=== PATIENT | male | born 1965 | race African-American/Black ===

== ENCOUNTER 2017-01-25 14:11 | Emergency (ER) | payer MEDICAID ==
[~2017-01-25] VITALS: Ht 188 cm; Wt 126.4 kg
[~2017-01-25 14:11] MED LIST: ABILIFY5 MG PO; AMLODIPINE5 MG PO; BENZTROPINE0.5 MG PO; ESCITALOPRAM OX10 MG PO; HYDROCHLOROT12.5 M1 PO; KEFLEX500 M1 PO; MIRTAZAPINE15 MG PO; PREVACID30 M3 PO; RISPERDAL2 MG PO; TRAZODONE100 MG PO; ULTRAM50 M1 PO; ZOFRAN ODT4 MG PO
[2017-01-25] MEDS ORDERED: RESTORIL15 MG PO (14:20)
[2017-01-25] MEDS ORDERED: ZESTRIL10 M1 PO (14:20)
[2017-01-25] MEDS ORDERED: FUROSEMIDE40 MG PO (14:20)
[2017-01-25] MEDS ORDERED: XARELTO10 MG PO (14:21)
[2017-01-25] MEDS ORDERED: CYCLOBENZAPR10 MG PO (14:22)
[2017-01-25] MEDS ORDERED: ZENPEP PO (14:22)
[2017-01-25] MEDS ORDERED: AMLODIPINE5 MG PO (14:23)
[2017-01-25] MEDS ORDERED: MIRTAZAPINE7.5 MG PO (14:24)
[2017-01-25] MEDS ORDERED: FLEXERIL PO (15:58)
[2017-01-25] MEDS ORDERED: LORTAB 10-325 M1 TAB PO (15:58)
[2017-01-25 16:02] VITALS: BP 128/87
== END 2017-01-25 16:09 | disposition home or self-care (01) | DRG 563 ==
LOC: ED 14:11
DX: S39.012A Strain of muscle, fascia and tendon of lower back, initial encounter (principal); I10 Essential (primary) hypertension; S43.401A Unspecified sprain of right shoulder joint, initial encounter; F32.9 Major depressive disorder, single episode, unspecified; F41.9 Anxiety disorder, unspecified; F17.290 Nicotine dependence, other tobacco product, uncomplicated; G89.29 Other chronic pain; M54.9 Dorsalgia, unspecified; X50.0XXA Overexertion from strenuous movement or load, initial encounter; Y93.89 Activity, other specified; Z86.73 Personal history of transient ischemic attack (TIA), and cerebral infarction without residual deficits

== ENCOUNTER 2017-03-10 06:39 | Day surgery (SDC) | payer MEDICAID ==
[~2017-03-10] VITALS: Ht 188 cm; Wt 128.8 kg
[~2017-03-10 06:39] MED LIST changes: +CYCLOBENZAPR10 MG PO; +FLEXERIL PO; +FUROSEMIDE40 MG PO; +HYDROCODONE/ACE1 TAB PO; +KLOR-CON 1010 MEQ PO; +LORTAB 10-325 M1 TAB PO; +METOPROL TAR25 M1 PO; +MIRTAZAPINE7.5 MG PO; +RESTORIL15 MG PO; +RISPERDAL 4MG TA4 MG PO; +XARELTO10 MG PO; +ZENPEP PO; +ZESTRIL10 M1 PO; +ZOLPIDEM5 MG PO
[2017-03-10] MEDS ORDERED: NORCO1 TA2 PO (08:49)
[2017-03-10 08:50] VITALS: BP 119/83
== END 2017-03-10 09:02 | disposition home or self-care (01) | DRG 552 ==
LOC: ORM 06:39
PROVIDERS: ATTEND Anesthesiology Pain Medicine
PROC: 3E0T3BZ Introduction of Anesthetic Agent into Peripheral Nerves and Plexi, Percutaneous Approach (ICD-10-PCS; principal; 2017-03-10)
PROC: 3E0T33Z Introduction of Anti-inflammatory into Peripheral Nerves and Plexi, Percutaneous Approach (ICD-10-PCS; 2017-03-10)
PROC: 3E0T33Z Introduction of Anti-inflammatory into Peripheral Nerves and Plexi, Percutaneous Approach (ICD-10-PCS; 2017-03-10)
PROC: 3E0T3BZ Introduction of Anesthetic Agent into Peripheral Nerves and Plexi, Percutaneous Approach (ICD-10-PCS; 2017-03-10)
PROC: 3E0T3BZ Introduction of Anesthetic Agent into Peripheral Nerves and Plexi, Percutaneous Approach (ICD-10-PCS; 2017-03-10)
PROC: 3E0T33Z Introduction of Anti-inflammatory into Peripheral Nerves and Plexi, Percutaneous Approach (ICD-10-PCS; 2017-03-10)
DX: M54.5 Low back pain (principal)

== ENCOUNTER 2017-08-25 20:22 | Emergency (ER) | payer MEDICAID ==
[~2017-08-25] VITALS: Ht 188 cm; Wt 113.8 kg
[~2017-08-25 20:22] MED LIST changes: +NORCO1 TA2 PO
[2017-08-25] MEDS ORDERED: ZIPRASIDONE HCL80 MG PO (20:35)
[2017-08-25] MEDS ORDERED: MIRTAZAPINE15 MG PO (20:36)
[2017-08-25 21:35] LABS: URINE BILIRUBIN - DIPSTICK NEGATIVE (NEGATIVE); URINE BLOOD DIPSTICK NEGATIVE (NEGATIVE); URINE COLOR YELLOW; URINE GLUCOSE - DIPSTICK NEGATIVE (NEGATIVE); URINE KETONE NEGATIVE (NEGATIVE); URINE LEUK ESTERASE NEGATIVE (NEGATIVE); URINE NITRITE - DIPSTICK NEGATIVE (Negative); URINE PH 6.5 (4.5-8.0); URINE PROTEIN - DIPSTICK NEGATIVE (NEG-TRACE); URINE UROBILINOGEN - DIPSTICK 0.2 E.U./dL (0.2)
[2017-08-25 21:35] LABS: HEMATOCRIT 41.6 % (39.0-50.0); HEMOGLOBIN 13.5 g/dl (14.0-18.0); IMMATURE GRANULOCYTES 0.2 % (0.0-1.0); MEAN CELL VOLUME 83.2 fL CALC (80.0-100.0); MEAN CORPUSCULAR HGB CONC 32.5 g/L CALC (32.0-36.0); NEUT# 2.95 thou/uL (1.82-7.42); RED CELL DISTRI WIDTH 14.3 % (11.5-15.5)
[2017-08-25 21:37] LABS: URINE CLARITY CLEAR
[2017-08-25 21:47] LABS: ALKALINE PHOSPHATASE 89 u/l (38-126); AMYLASE 96 u/l (30-110); ANION GAP 12 (6-22 (CALC)); BILIRUBIN, TOTAL 0.2 mg/dL (0.0-1.4); BUN 15 mg/dL (9-20); BUN/CREATININE RATIO 13 (12-20 (CALC)); CALCIUM 9.1 mg/dL (8.4-10.2); CARBON DIOXIDE 26 mmol/l (22-30); CHLORIDE 106 mmol/l (95-108); CREATININE 1.1 mg/dL (0.7-1.3); GFR > 60 ML/MIN (>=60 (CALC)); GFR FOR AFR.AMER. > 60 ML/MIN (>=60 (CALC)); GLUCOSE 111 mg/dL (75-110); LIPASE 370 u/l (23-300); SGOT/AST 24 u/l (17-59); SGPT/ALT 36 u/l (21-72); SODIUM 140 mmol/l (137-146); TOTAL PROTEIN 6.6 g/dL (6.3-8.2)
[2017-08-25 21:59] LABS: MYOGLOBIN 32 ng/mL (0 - 121)
[2017-08-25] MEDS ORDERED: LORTAB 1010 MG PO (23:21)
[2017-08-25] MEDS ORDERED: PREVACID30 M2 PO (23:21)
[2017-08-25] MEDS ORDERED: ZOFRAN ODT4 MG PO (23:21)
[2017-08-25 23:37] VITALS: BP 125/81
== END 2017-08-25 23:37 | disposition home or self-care (01) | DRG 392 ==
LOC: ED 20:22
PROVIDERS: Emergency Medicine
DX: R10.12 Left upper quadrant pain (principal); I11.0 Hypertensive heart disease with heart failure; I50.9 Heart failure, unspecified; K86.1 Other chronic pancreatitis; F17.210 Nicotine dependence, cigarettes, uncomplicated; Z86.73 Personal history of transient ischemic attack (TIA), and cerebral infarction without residual deficits
CPT/HCPCS: Q9967

== ENCOUNTER 2018-02-04 22:43 | Emergency (ER) | payer MEDICAID ==
[~2018-02-04] VITALS: Ht 188 cm; Wt 131.8 kg
[~2018-02-04 22:43] MED LIST changes: +LORTAB 1010 MG PO; +PREVACID30 M2 PO; +ZIPRASIDONE HCL80 MG PO
[2018-02-04] MEDS ORDERED: HYDROCHLOROT25 MG PO (22:53)
[2018-02-05] MEDS ORDERED: BENADRYL 50MG C50 MG PO (00:28)
[2018-02-05 00:40] VITALS: BP 133/80
== END 2018-02-05 00:40 | disposition home or self-care (01) | DRG 556 ==
LOC: ED 22:43
DX: M79.89 Other specified soft tissue disorders (principal); I11.0 Hypertensive heart disease with heart failure; I50.9 Heart failure, unspecified

== ENCOUNTER 2018-03-01 23:30 | Emergency (ER) | payer MEDICAID ==
[~2018-03-01] VITALS: Ht 188 cm; Wt 132.3 kg
[~2018-03-01 23:30] MED LIST changes: +BENADRYL 50MG C50 MG PO; +HYDROCHLOROT25 MG PO
[2018-03-01] MEDS ORDERED: GABAPENTIN600 MG PO (23:51)
[2018-03-01] MEDS ORDERED: HYDROCO/APAP1 T10 PO (23:53)
[2018-03-02] MEDS ORDERED: LORTAB 1010 MG PO (00:22)
[2018-03-02 00:47] VITALS: BP 135/92
== END 2018-03-02 01:17 | disposition home or self-care (01) | DRG 556 ==
LOC: ED 23:30
DX: M79.672 Pain in left foot (principal); I11.0 Hypertensive heart disease with heart failure; I50.9 Heart failure, unspecified

== ENCOUNTER 2018-08-01 05:17 | Emergency (ER) | payer MEDICAID ==
[~2018-08-01] VITALS: Ht 188 cm; Wt 136.0 kg
[~2018-08-01 05:17] MED LIST changes: +GABAPENTIN600 MG PO; +HYDROCO/APAP1 T10 PO
[2018-08-01 05:41] LABS: GFR 58 ML/MIN (>=60 (CALC)); GFR FOR AFR.AMER. > 60 ML/MIN (>=60 (CALC))
[2018-08-01 05:53] LABS: ALBUMIN 4.1 g/dL (3.2-5.0); ALKALINE PHOSPHATASE 69 u/l (38-126); ANION GAP 10 (6-22 (CALC)); BILIRUBIN, TOTAL 0.3 mg/dL (0.0-1.4); BUN 14 mg/dL (9-20); BUN/CREATININE RATIO 11 (12-20 (CALC)); CARBON DIOXIDE 27 mmol/l (22-30); CHLORIDE 108 mmol/l (95-108); CREATININE 1.2 mg/dL (0.7-1.3); GFR > 60 ML/MIN (>=60 (CALC)); GFR FOR AFR.AMER. > 60 ML/MIN (>=60 (CALC)); POTASSIUM 4.1 mmol/l (3.5-5.1); SODIUM 141 mmol/l (137-146); TOTAL PROTEIN 7.3 g/dL (6.3-8.2)
[2018-08-01 05:54] LABS: ACT PARTIAL THROMBO TIME 27.7 SECONDS (20.0-32.5)
[2018-08-01 05:56] LABS: SGOT/AST 49 u/l (17-59)
[2018-08-01 05:57] LABS: HEMATOCRIT 39.6 % (39.0-50.0); HEMOGLOBIN 12.5 g/dl (14.0-18.0); IMMATURE GRANULOCYTES 0.6 % (0.0-5.0); MEAN CELL VOLUME 83.9 fL CALC (80.0-100.0); MEAN CORPUSCULAR HGB 26.5 pG CALC (26.0-32.0); MEAN CORPUSCULAR HGB CONC 31.6 g/L CALC (32.0-36.0); NEUT# 1.69 thou/uL (1.82-7.42); RED BLOOD COUNT 4.72 mill/uL (4.70-6.10); RED CELL DISTRI WIDTH 15.5 % (11.5-15.5)
[2018-08-01 06:05] LABS: MYOGLOBIN 52 ng/mL (0 - 121)
[2018-08-01 07:01] VITALS: BP 128/99
== END 2018-08-01 07:01 | disposition short-term general hospital (02) ==
LOC: ED 05:17
PROVIDERS: Family Medicine
DX: I63.9 Cerebral infarction, unspecified (principal); R29.810 Facial weakness; R47.81 Slurred speech; I10 Essential (primary) hypertension; R29.719 NIHSS score 19

== ENCOUNTER 2018-10-26 16:00 | Outpatient (RCR) | payer OTHER | END 2018-10-26 17:00 | disposition home or self-care (01) | LOC: PT 16:00 | DX: F44.4 Conversion disorder with motor symptom or deficit (principal) ==

== ENCOUNTER 2018-11-07 15:24 | Emergency (ER) | payer OTHER ==
[~2018-11-07] VITALS: Ht 188 cm; Wt 131.8 kg
[2018-11-07] MEDS ORDERED: CELEXA20 MG PO (17:34)
[2018-11-07] MEDS ORDERED: EC ASPIRIN325 MG PO (17:35)
[2018-11-07] MEDS ORDERED: ATORVASTATIN CA40 MG PO (17:35)
[2018-11-07] MEDS ORDERED: TRAZODONE50 MG PO (17:36)
[2018-11-07] MEDS ORDERED: FLEXERIL PO (17:51)
[2018-11-07 18:56] VITALS: BP 112/71
== END 2018-11-07 18:56 | disposition home or self-care (01) ==
LOC: ED 15:24
DX: R51 Headache (principal); I10 Essential (primary) hypertension; Z86.73 Personal history of transient ischemic attack (TIA), and cerebral infarction without residual deficits

== ENCOUNTER 2018-11-23 09:04 | Observation (INO) | payer OTHER ==
[~2018-11-23] VITALS: Ht 188 cm; Wt 131.7 kg
[~2018-11-23 09:04] MED LIST changes: +ATORVASTATIN CA40 MG PO; +CELEXA20 MG PO; +EC ASPIRIN325 MG PO; +TRAZODONE50 MG PO
[2018-11-23 10:09] LABS: HEMATOCRIT 40.9 % (39.0-50.0); HEMOGLOBIN 12.5 g/dl (14.0-18.0); IMMATURE GRANULOCYTES 0.2 % (0.0-5.0); MEAN CORPUSCULAR HGB 25.4 pG CALC (26.0-32.0); MEAN CORPUSCULAR HGB CONC 30.6 g/L CALC (32.0-36.0); NEUT# 2.07 thou/uL (1.82-7.42); RED BLOOD COUNT 4.93 mill/uL (4.70-6.10); RED CELL DISTRI WIDTH 15.3 % (11.5-15.5)
[2018-11-23] MEDS ORDERED: OXYCODONE HCL15 MG PO (10:15)
[2018-11-23 10:31] LABS: ALBUMIN 4.4 g/dL (3.2-5.0); ALKALINE PHOSPHATASE 76 u/l (38-126); ANION GAP 14 (6-22 (CALC)); BILIRUBIN, TOTAL 0.5 mg/dL (0.0-1.4); BUN 11 mg/dL (9-20); BUN/CREATININE RATIO 10 (12-20 (CALC)); CARBON DIOXIDE 26 mmol/l (22-30); CHLORIDE 103 mmol/l (95-108); CREATININE 1.1 mg/dL (0.7-1.3); GFR > 60 ML/MIN (>=60 (CALC)); GFR FOR AFR.AMER. > 60 ML/MIN (>=60 (CALC)); LIPASE 102 u/l (23-300); POTASSIUM 4.2 mmol/l (3.5-5.1); SGOT/AST 44 u/l (17-59); SODIUM 139 mmol/l (137-146); TOTAL PROTEIN 7.3 g/dL (6.3-8.2)
[2018-11-23 11:29] LABS: URINE BILIRUBIN - DIPSTICK NEGATIVE (NEGATIVE); URINE BLOOD DIPSTICK NEGATIVE (NEGATIVE); URINE COLOR YELLOW; URINE GLUCOSE - DIPSTICK NEGATIVE (NEGATIVE); URINE KETONE NEGATIVE (NEGATIVE); URINE LEUK ESTERASE NEGATIVE (NEGATIVE); URINE NITRITE - DIPSTICK NEGATIVE (Negative); URINE PROTEIN - DIPSTICK NEGATIVE (NEG-TRACE); URINE SPECIFIC GRAVITY 1.015; URINE UROBILINOGEN - DIPSTICK 0.2 E.U./dL (0.2)
[2018-11-23 13:39] VITALS: BP 144/91
[2018-11-23 16:00] VITALS: BP 140/92
[2018-11-23 23:17] VITALS: BP 140/89
[2018-11-24 05:23] LABS: HEMOGLOBIN 12.8 g/dl (14.0-18.0); IMMATURE GRANULOCYTES 0.4 % (0.0-5.0); MEAN CELL VOLUME 83.8 fL CALC (80.0-100.0); MEAN CORPUSCULAR HGB 25.5 pG CALC (26.0-32.0); MEAN CORPUSCULAR HGB CONC 30.5 g/L CALC (32.0-36.0); NEUT# 2.2 thou/uL (1.82-7.42); RED BLOOD COUNT 5.01 mill/uL (4.70-6.10); RED CELL DISTRI WIDTH 15.6 % (11.5-15.5)
[2018-11-24 06:06] VITALS: BP 130/84
[2018-11-24 12:22] VITALS: BP 109/68
== END 2018-11-24 13:21 | disposition home or self-care (01) ==
LOC: ED 09:04 → ED-I 11:26 → ED 11:38 → MS2 11:39
PROVIDERS: Family Medicine; ADMIT Surgery; ATTEND Surgery
DX: K64.8 Other hemorrhoids (principal); K64.4 Residual hemorrhoidal skin tags; D17.1 Benign lipomatous neoplasm of skin and subcutaneous tissue of trunk; K29.60 Other gastritis without bleeding; Q40.2 Other specified congenital malformations of stomach; K21.9 Gastro-esophageal reflux disease without esophagitis; I11.0 Hypertensive heart disease with heart failure; I50.9 Heart failure, unspecified; Z86.73 Personal history of transient ischemic attack (TIA), and cerebral infarction without residual deficits
CPT/HCPCS: G0378; Q9967

== ENCOUNTER 2018-12-02 16:15 | Emergency (ER) | payer OTHER ==
[~2018-12-02] VITALS: Ht 188 cm; Wt 131.8 kg
[~2018-12-02 16:15] MED LIST changes: +OXYCODONE HCL15 MG PO
[2018-12-02] MEDS ORDERED: PERCOCET 10/31 COMBO PO (17:18)
[2018-12-02 17:40] VITALS: BP 139/85
== END 2018-12-02 17:40 | disposition home or self-care (01) ==
LOC: ED 16:15
DX: G89.29 Other chronic pain (principal); M54.5 Low back pain; M54.2 Cervicalgia; I11.0 Hypertensive heart disease with heart failure; I50.9 Heart failure, unspecified

== ENCOUNTER 2018-12-22 09:12 | Day surgery (SDC) | payer MEDICAID ==
[~2018-12-22] VITALS: Ht 188 cm; Wt 127.0 kg
[2018-12-22] VITALS (8 sets, daily range): BP systolic 117–141; BP diastolic 73–98
[~2018-12-22 09:12] MED LIST changes: +AMBIEN5 MG PO; +EVZIO2 MG/0.4 M; +GABAPENTIN100 MG PO; +KLOR-CON M2020 MEQ PO; +LISINOPRIL20 M1 PO; +METOPROL TAR25 MG PO; +MIRTAZAPINE45 M1 PO; +OXYCODONE15 MG PO; +PERCOCET 10/31 COMBO PO; +[UNRECOGNIZED DRUG - CODE] PO
[2018-12-22] MEDS ORDERED: TRAZODONE100 MG PO (09:32)
[2018-12-23 00:08] VITALS: BP 142/76
[2018-12-23 04:05] VITALS: BP 136/90
[2018-12-23 08:46] VITALS: BP 158/84
[2018-12-23 08:51] VITALS: BP 158/84
== END 2018-12-23 15:35 | disposition home health service (06) ==
LOC: ORM 09:12 → MS2 12:42 → ORM 12-23 15:35
PROVIDERS: ATTEND Surgery
DX: K64.8 Other hemorrhoids (principal); D17.1 Benign lipomatous neoplasm of skin and subcutaneous tissue of trunk
CPT/HCPCS: C9290; J0131

== ENCOUNTER 2019-02-03 09:05 | Observation (INO) | payer MEDICAID ==
[~2019-02-03] VITALS: Ht 188 cm; Wt 131.8 kg
[2019-02-03] VITALS (7 sets, daily range): BP systolic 112–143; BP diastolic 74–89
[2019-02-03 09:28] LABS: HEMATOCRIT 41.2 % (39.0-50.0); HEMOGLOBIN 12.7 g/dl (14.0-18.0); IMMATURE GRANULOCYTES 0.2 % (0.0-5.0); MEAN CELL VOLUME 83.9 fL CALC (80.0-100.0); MEAN CORPUSCULAR HGB 25.9 pG CALC (26.0-32.0); MEAN CORPUSCULAR HGB CONC 30.8 g/L CALC (32.0-36.0); NEUT# 2.95 thou/uL (1.82-7.42); RED BLOOD COUNT 4.91 mill/uL (4.70-6.10); RED CELL DISTRI WIDTH 15.8 % (11.5-15.5)
[2019-02-03 09:40] LABS: ANION GAP 14 (6-22 (CALC)); BUN 18 mg/dL (9-20); BUN/CREATININE RATIO 19 (12-20 (CALC)); CARBON DIOXIDE 22 mmol/l (22-30); CHLORIDE 109 mmol/l (95-108); GFR > 60 ML/MIN (>=60 (CALC)); GFR FOR AFR.AMER. > 60 ML/MIN (>=60 (CALC)); POTASSIUM 4.2 mmol/l (3.5-5.1); SODIUM 141 mmol/l (137-146)
[2019-02-03 09:51] LABS: PROTHROMBIN TIME 10.2 SECONDS (9.0-12.5)
[2019-02-04] VITALS: BP 131/70
[2019-02-04 06:29] VITALS: BP 108/71
[2019-02-04 08:00] VITALS: BP 123/88
[2019-02-04 10:00] VITALS: BP 153/87
[2019-02-04] MEDS ORDERED: ELIQUIS2.5 MG PO (10:46)
[2019-02-04] MEDS ORDERED: XARELTO10 MG PO (11:09)
[2019-02-04 12:00] VITALS: BP 136/67
== END 2019-02-04 12:40 | disposition home or self-care (01) ==
LOC: ED 09:05 → ED-I 09:57 → ED 10:10 → ICU 10:11
PROVIDERS: Family Medicine; ADMIT Internal Medicine Nephrology; ATTEND Internal Medicine Nephrology
DX: I48.0 Paroxysmal atrial fibrillation (principal); R07.89 Other chest pain; I13.0 Hypertensive heart and chronic kidney disease with heart failure and stage 1 through stage 4 chronic kidney disease, or unspecified chronic kidney disease; I50.9 Heart failure, unspecified; N18.3 Chronic kidney disease, stage 3 (moderate); E78.5 Hyperlipidemia, unspecified; T45.516A Underdosing of anticoagulants, initial encounter; M54.5 Low back pain; F41.8 Other specified anxiety disorders; K86.1 Other chronic pancreatitis; G47.00 Insomnia, unspecified; Z86.73 Personal history of transient ischemic attack (TIA), and cerebral infarction without residual deficits; Z88.8 Allergy status to other drugs, medicaments and biological substances; Z91.128 Patient's intentional underdosing of medication regimen for other reason; Z91.19 Patient's noncompliance with other medical treatment and regimen; Z79.01 Long term (current) use of anticoagulants
CPT/HCPCS: J1644

== ENCOUNTER 2019-05-12 14:27 | Emergency (ER) | payer OTHER, MEDICAID ==
[~2019-05-12] VITALS: Ht 188 cm; Wt 104.5 kg
[~2019-05-12 14:27] MED LIST changes: +ELIQUIS2.5 MG PO
[2019-05-12] MEDS ORDERED: BENZTROPINE0.5 MG PO (15:08)
[2019-05-12 17:05] VITALS: BP 122/65
[2019-05-12] MEDS ORDERED: CREON6000 UNIT PO (17:22)
[2019-05-12] MEDS ORDERED: FUROSEMIDE20 MG PO (17:22)
[2019-05-12] MEDS ORDERED: LISINOPRIL20 MG PO (17:23)
[2019-05-12] MEDS ORDERED: TOPROL XL25 M1 PO (17:23)
[2019-05-12] MEDS ORDERED: GABAPENTIN100 MG PO (17:23)
[2019-05-12] MEDS ORDERED: REMERON15 MG PO (17:24)
[2019-05-12] MEDS ORDERED: K-TABS10 MEQ PO (17:24)
[2019-05-12] MEDS ORDERED: RISPERIDONE2 MG PO (17:25)
[2019-05-12] MEDS ORDERED: XARELTO10 MG PO (17:26)
[2019-05-12] MEDS ORDERED: HYDROXYZ PAM25 MG PO (17:28)
== END 2019-05-12 17:05 | DRG 605 ==
LOC: ED 14:27
DX: S70.01XA Contusion of right hip, initial encounter (principal); I11.0 Hypertensive heart disease with heart failure; I50.9 Heart failure, unspecified; W17.89XA Other fall from one level to another, initial encounter; Y92.143 Cell of prison as the place of occurrence of the external cause; Z86.73 Personal history of transient ischemic attack (TIA), and cerebral infarction without residual deficits